=== PATIENT | female | born 1975 | race Caucasian/White ===

== ENCOUNTER → 2024-06-12 15:14 | Outpatient (REF) | payer OTHER, SELFPAY | LOC: WDC 15:14 | PROVIDERS: ATTENDING PHYSICIAN Nurse Practitioner Family; FAMILY PHYSICIAN Internal Medicine | DX: Z12.31 Encounter for screening mammogram for malignant neoplasm of breast (principal) | CPT/HCPCS: 77063; 77067 ==

== ENCOUNTER → 2025-07-03 14:43 | Outpatient (REF) | payer OTHER, SELFPAY | LOC: WDC 14:43 | PROVIDERS: ATTENDING PHYSICIAN Nurse Practitioner | DX: Z12.31 Encounter for screening mammogram for malignant neoplasm of breast (principal) | CPT/HCPCS: 77063; 77067 ==